=== PATIENT | male | born 2000 | race Caucasian/White ===

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

== ENCOUNTER → 2020-04-25 | Day surgery (SDC) | payer OTHER ==
[~2020-04-25] MED LIST: BENTYL10 MG PO; COLESTID 1GM TAB1 GM PO; FLONASE ALLER15.8 ML; NORCO 5-325 TA1 EACH PO; TRIAMCINOLONE454 GM TOP; VENTOLIN HFA IN18 GM INH; ZOFRAN8 MG PO; ZOLOFT50 MG PO
== END | disposition home or self-care (01) ==
LOC: FAS 07:01
DX: K81.1 Chronic cholecystitis (principal); Z87.891 Personal history of nicotine dependence
CPT/HCPCS: J0295; J1170; J1885; J2250; J2405; J2704; J2710; J3010; J7120; Q9967